=== PATIENT | female | born 1975 | race Native Hawaiian/Other Pacific Islander ===

== ENCOUNTER 2023-03-31 17:45 | Emergency (ER) | payer BC ==
[~2023-03-31] VITALS: Ht 165.1 cm; Wt 113.6 kg
[2023-03-31 20:14] LABS: COVID AG,FIA SOURCE NASAL SWAB
[2023-03-31] MEDS ORDERED: BENZ-227 PO (20:25)
[2023-03-31] MEDS ORDERED: PRED20TA3 PO (20:25)
[2023-03-31] MEDS ORDERED: ALBU18HF12 IH (20:26)
[2023-03-31 20:33] VITALS: BP 132/77; PULSE 67; RESP 18; TEMP 97.3
== END 2023-03-31 20:33 | disposition home or self-care (01) ==
LOC: EMS 17:49
DX: J45.909 Unspecified asthma, uncomplicated (principal); J06.9 Acute upper respiratory infection, unspecified; R05.9 Cough, unspecified; Z98.890 Other specified postprocedural states; Z88.8 Allergy status to other drugs, medicaments and biological substances; Z20.822 Contact with and (suspected) exposure to COVID-19
CPT/HCPCS: 71046; 99284